=== PATIENT | female | born 1955 | race Caucasian/White ===

== ENCOUNTER 2017-04-12 15:29 | Inpatient (IN) | payer BC ==
[2017-04-12] MEDS ORDERED: Iopamidol 612 MG/ML 75 ML Bottle IV PRN (15:48)
[2017-04-12] MEDS ORDERED: Sodium Chloride 0.9% 50 ML SDV FLUSH ONE (16:00)
[2017-04-12] MEDS ORDERED: Ondansetron 4 MG/2 ML SDV IVPUSH ONE (16:51)
[2017-04-12] MEDS ORDERED: Sodium Chloride 0.9% 1,000 ML IV SCH (17:00)
[2017-04-12] MEDS ORDERED: Sodium Chloride 0.9% 5 ML Syringe FLUSH PRN (18:47)
[2017-04-12] MEDS ORDERED: Morphine 2 MG/ML Syringe IVPUSH PRN (18:51)
[2017-04-12] MEDS ORDERED: LORazepam 2 MG/ML SDV IM PRN (18:55)
[2017-04-12] MEDS: Sodium Chloride 0.9% 1,000 ML IV SCH (19:53)
[2017-04-12] MEDS: Ondansetron 4 MG/2 ML SDV IV PRN (21:52)
[2017-04-12] MEDS: LORazepam 2 MG/ML SDV IVPUSH PRN (21:58)
[2017-04-13] MEDS: Sodium Chloride 0.9% 1,000 ML IV SCH ×2 (02:16→20:36)
[2017-04-13] MEDS: Ondansetron 4 MG/2 ML SDV IV PRN ×3 (02:20→23:17)
[2017-04-13 07:46] LABS: CHLORIDE,CL 104 mmol/L (98-115); SODIUM,NA 141 mmol/L (136-145)
--- NOTE | 2017-04-13 11:28 | PN ---
04/13/2017 PATIENT NAME: LIS MG HISTORY: A 62-year-old very pleasant female. I had seen at [facility] yesterday on 04/12/2017. She came in with her spouse, complaining of abdominal distention, severe nausea and abdominal pain along with low-grade fever 99.7. The patient does have a history of small bowel obstruction, all have been nonoperable. Her clinical picture did indicate likely recurrent of a bowel obstruction. She had stated that her last bowel movement was the morning of admission, however, it was scant. A few days prior to that, she had some diarrhea which she took some Pepto-Bismol. On exam, prior to admission, she did have some mild abdominal distention, somewhat taut. She initially stated her pain was more epigastric. However, when she would avoid, her pain was shifted to more of lower abdominal, more transverse. Surgical history includes appendectomy. She does have a history of small bowel obstructions in the past, last was approximately two years ago. She also had an upper GI endoscopy in September 2014 due to dysphagia. Her diagnosis was GERD, otherwise, normal GI endoscopy. LABORATORY DATA: Labs at [facility], white count was 8.9, hemoglobin 16.1, corresponding hematocrit 47.4, likely hemoconcentrated. No neutrophilia. No electrolyte abnormalities. BUN and creatinine ratio slightly elevated at 28.3. ALT, AST, total bilirubin, alkaline phosphatase normal. Amylase low 39. Temperature at the clinic was 99.7. Blood pressure was 120/72. The patient was sent over for CT scan and subsequently admitted for small bowel obstruction. DIAGNOSTICS: Abdominal CT with IV contrast demonstrated small bowel obstruction with significant proximal and mid small bowel dilatation up to 5.5 cm. Small interloop fluid with possibility of developing bowel ischemia secondary to her obstruction or free air identified. HOSPITAL COURSE: To date, overnight, the patient did have a nasogastric tube placed to decompress, 850 mL output so far, nasogastric. Voided three times, however, nurses are not collecting output as directed. Ongoing isotonic saline at 120 mL/h. N.p.o. at this time. Overnight report: The patient did quite well. She has much less abdominal pain, much less nausea. No longer distended. She is passing gas. No bowel movement yet. Vital signs: Blood pressure 119/60, temperature 99.3, heart rate 74, respiratory rate 16, O2 sats 96% on room air. Lungs: Clear to auscultation. No wheezes, rhonchi. CV: Regular rate and rhythm. Mucous membranes slightly dry. GI: Clamped NG tube prior to assessment. Soft, nontender. No distention. Negative psoas. Bowel tones are present throughout. Lower extremities: No edema. White count 6.6, hemoglobin 13.4, hematocrit 40.9, neutrophils 77%. Sodium, potassium, BUN, and creatinine normal. Calcium slightly low at 7.9, glucose 83. She is n.p.o. Consultations: Did consult with Dr. Huggins last night. He did agree with overall plan on likely treating mechanical obstruction here locally with IV fluids, gastric decompression, and ongoing monitoring for any signs of peritonitis or perforation. The patient did agree with plan of overnight stay with further ongoing close monitoring. Overall plan: Today, strict Is and Os. Discuss with nursing with this. Ongoing gastric decompression. Ambulating on the floor today. Continue n.p.o. status for now. Monitor for signs of sepsis, ischemic bowel, peritonitis. May decide on prokinetic agents later on today if she continues to have improved in bowel tones. Strict intake and output on nasogastric especially. Consult with Dr. Huggins's office regarding ongoing assessment likely she can continue here at [facility]. We discussed possible GI surgical referral post hospitalization. Hopefully, we can begin clear liquids. We will see this afternoon with ongoing monitoring. /[id number]/MODL
[2017-04-13] MEDS: Pantoprazole 40 MG Vial IVPUSH SCH (13:45)
[2017-04-13] MEDS ORDERED: Metoclopramide 10 MG/2 ML SDV IVPUSH ONE (18:24)
--- NOTE | 2017-04-13 18:24 | PCM.SN ---
- Free Text/Narrative Note: Update today, patient has improved. Ambulating. No abdominal distention and no longer abdominal pain. No nausea. Continues with nasogastric decompression. Had 850 mL out brown liquid from admission to rounds this morning and then 400 thereafter. Still no appreciable passing gas. Afebrile. Blood pressure slightly low however asymptomatic. T-max 99.7 today. Continues with bowel rest and nothing by mouth status. Consulted with medicine for one call today, they agree with plan. Recommend Reglan 5 mg 1 and changed to low continuous wall suction tonight and then back to intermittent tomorrow. A repeat CT in a couple days to evaluate resolution of her small bowel dilatation. If she starts passing gas may advance diet to clear liquids to full diet. Discussed case with patient. She prefers to stay here at [facility] to be medically management. Continue with assessments of vital signs CBC and electrolytes in the morning. Continue with IV fluids at this time. Hysell tonic may switch to maintenance in the next 24 hours if she starts advancing diet and passing gas.
[2017-04-13] MEDS: LORazepam 2 MG/ML SDV IVPUSH PRN (23:22)
[2017-04-14] MEDS: Sodium Chloride 0.9% 1,000 ML IV SCH (04:34)
[2017-04-14 08:01] LABS: CHLORIDE,CL 110 mmol/L (98-115); SODIUM,NA 143 mmol/L (136-145)
[2017-04-14] MEDS: Pantoprazole 40 MG Vial IVPUSH SCH (08:49)
[2017-04-14] MEDS: Lactated Ringers 1,000 ML IV SCH ×2 (13:04→21:21)
--- NOTE | 2017-04-14 13:10 | PCM.PN ---
- General Info Date of Service: 04/14/17 Admission Dx/Problem (Free Text): Ms. Armstrong reports ongoing improvement in the last 24 hours. Last evening after receiving a dose of metoclopramide, she had passage of loose stool and has continued to have flatus. This morning, she denies any pain or nausea and hasn' t received any analagesics or antiemetics since last night. Ambulating well without difficulty. She denies any fever, chills, or new symptoms. No nursing concerns. - Patient Data Vitals - Most Recent: Last Vital Signs Temp 36.6 C 04/14/17 10:46 Pulse 71 04/14/17 10:46 Resp 18 04/14/17 10:46 BP 105/52 L 04/14/17 10:46 Pulse Ox 98 04/14/17 10:46 Weight - Most Recent: 52.798 kg I&O - Last 24 Hours: Intake & Output 04/13/17 04/14/17 04/14/17 22:59 06:59 14:59 Intake Total 922 944 Output Total 550 675 Balance 372 269 Lab Results Last 24 Hours: Laboratory Results - last 24 hr 04/14/17 04/14/17 Range/Units 07:32 07:32 WBC 6.2 (5.0-10.0) 10^3/uL RBC 4.20 (3.80-5.50) 10^6/uL Hgb 12.2 (12.0-16.0) g/dL Hct 37.8 (37.0-47.0) % MCV 90.1 (82.0-92.0) fL MCH 29.0 (27.0-31.0) pg MCHC 32.2 (32.0-36.0) g/dL RDW 11.6 (11.5-14.5) % Plt Count 185 (150-300) 10^3/uL MPV 7.2 L (7.4-10.4) fL Neut % (Auto) 74.0 H (50.0-70.0) % Lymph % (Auto) 18.8 L (20.0-40.0) % Ellis % (Auto) 5.3 (2.0-8.0) % Eos % (Auto) 0.6 L (1.0-3.0) % Baso % (Auto) 1.3 H (0.0-1.0) % Neut # (Auto) 4.6 (2.5-7.0) 10^3/uL Lymph # (Auto) 1.2 (1.0-4.0) 10^3/uL Ellis # (Auto) 0.3 (0.1-0.8) 10^3/uL Eos # (Auto) 0.0 L (0.1-0.3) 10^3/uL Baso # (Auto) 0.1 (0.0-0.1) 10^3/uL Sodium 143 (136-145) mmol/L Potassium 3.9 (3.3-5.3) mmol/L Chloride 110 (98-115) mmol/L Carbon Dioxide 18.9 L (21.0-32.0) mmol/L BUN 15 (6-25) mg/dL Creatinine 0.50 L (0.51-1.17) mg/dL Est Cr Clr Drug Dosing 98.48 mL/min Estimated GFR (MDRD) > 60 mL/min Glucose 68 L (70-110) mg/dL Calcium 7.2 L (8.7-10.3) mg/dL Med Orders - Current: Current Medications Lactated Ringer's (Ringers, Lactated) 1,000 mls @ 120 mls/hr IV ASDIRECTED [facility] Last Admin: 04/14/17 13:04 Dose: 120 mls/hr Lorazepam (Ativan) 0.5 mg IVPUSH BEDTIME PRN PRN Reason: Anxiety Last Admin: 04/13/17 23:22 Dose: 0.5 mg Morphine Sulfate (Morphine) 2 - 4 mg IVPUSH Q4H PRN PRN Reason: Pain Last Admin: 04/13/17 09:29 Dose: 2 mg Ondansetron HCl (Zofran) 4 mg IV Q4H PRN PRN Reason: Nausea/Vomiting Last Admin: 04/13/17 23:17 Dose: 4 mg Pantoprazole Sodium (Protonix Iv) 40 mg IVPUSH DAILY [facility] Last Admin: 04/14/17 08:49 Dose: 40 mg Sodium Chloride (Syrex Flush) 5 ml FLUSH Q8HR PRN PRN Reason: Keep Vein Open Discontinued Medications Sodium Chloride (Normal Saline) 1,000 mls @ 120 mls/hr IV ASDIRECTED [facility] Last Admin: 04/12/17 17:07 Dose: 90 mls/hr Sodium Chloride (Normal Saline) 1,000 mls @ 120 mls/hr IV ASDIRECTED [facility] Last Admin: 04/14/17 04:34 Dose: 120 mls/hr Iopamidol (Isovue-300 (61%)) 75 ml IV . DIRECTED PRN PRN Reason: FOR RADIOLOGY EXAM Last Admin: 04/12/17 17:09 Dose: 75 ml Lorazepam (Ativan) 0.5 mg IM BEDTIME PRN PRN Reason: Anxiety Metoclopramide HCl (Reglan) 5 mg IVPUSH ONETIME ONE Stop: 04/13/17 18:25 Last Admin: 04/13/17 19:49 Dose: 5 mg Ondansetron HCl (Zofran) 4 mg IVPUSH ONETIME ONE Stop: 04/12/17 16:52 Last Admin: 04/12/17 17:07 Dose: 4 mg Sodium Chloride (Normal Saline) 50 ml FLUSH ONETIME ONE Stop: 04/12/17 16:01 Last Admin: 04/12/17 17:10 Dose: 50 ml - Exam Physical Findings Comments:: GENERAL: Well-appearing adult white female lying in hospital bed in no acute distress. HEENT: Normocephalic, atraumatic. Conjunctiva clear. Mucous membranes slightly dry. NECK: Supple, no masses. CV: Regular rate and rhythm, no murmurs, rubs, or gallops. 2+ radial pulses. PULMONARY: Normal effort, clear to auscultation bilaterally, no wheezes, rales, or rhonchi. ABDOMEN: Positive bowel sounds in all 4 quadrants, soft, nontender, nondistended. EXTREMITIES: No edema, cyanosis, or clubbing. NEUROLOGICAL: No obvious deficits. DERMATOLOGIC: No rashes or suspicious lesions in exposed areas. PSYCHIATRIC: Alert, interactive, appropriate affect. LINES/TUBES: Nasogastric tube in place with 150cc output in the last 4 hours. - Problem List Review Problem List Initiated/Reviewed/Updated: Yes - My Orders Last 24 Hours: My Active Orders 04/14/17 13:00 Lactated Ringers [Ringers, Lactated] 1,000 ml IV ASDIRECTED 04/15/17 05:11 BASIC METABOLIC PANEL,BMP [CHEM] AM CBC WITH AUTO DIFF [HEME] AM - Assessment Assessment:: Ms. Armstrong is a 62yoF with history of recurrent SBO who was evaluated in clinic on 04/12/17 for symptoms of abdominal pain, distension, and nausea. CT abdomen/ pelvis revealed a high grade SBO and she was admitted for management. # SBO: 04/12 CT abdomen/pelvis with dilated loops of small bowel, including a loop in the pelvis measuring 5.6cm in diameter. Surgery was consulted and recommended trial of nonoperative management with gastric decompression, bowel rest, and IVF, with close monitoring for signs of peritonitis or perforation. Follow-up consultation yesterday recommended ongoing medical management and trial of metoclopramide was given with subsequent stool passage and ongoing passage of flatus. Since she is having much decreased NGT output (1L in the last 24hrs) and no nausea or pain, will clamp NGT and allow for ice chips. If continuing to tolerate well, will plan to advance diet to clear liquids later in the day and possibly remove NGT as early as tomorrow morning. Continue close monitoring for any signs of peritonitis or perforation, including repeat CBC and BMP tomorrow. Continue monitoring of I/O, ambulation, and IVF. Chronic medical conditions: # GERD: Pantoprazole; will change back to po when tolerating diet. # Osteoporosis: Prolia and Ca/D as outpatient; holding here while NPO. # Anxiety/Insomnia: Lorazepam; will change back to po when tolerating diet. Hospitalization details: # FEN: Change NS to LR at 120cc/hr. Electrolytes normal. Diet as above with increase to ice chips and possibly to clear liquids later today. # PPX: Low risk for DVT=ambulation. # Code status: FULL. # Emergency contact: , Reji ([phone]). # Disposition: Continue on inpatient unit. Anticipate eventual discharge to home when SBO resolved.
[2017-04-14] MEDS: Benzocaine 20% Oral Spray 59.2 ML Canister MUCMEM PRN ×2 (15:07→19:12)
[2017-04-14] MEDS: LORazepam 2 MG/ML SDV IVPUSH PRN (22:18)
[2017-04-15] MEDS: Benzocaine 20% Oral Spray 59.2 ML Canister MUCMEM PRN (05:08)
[2017-04-15] MEDS: Lactated Ringers 1,000 ML IV SCH (05:11)
[2017-04-15 07:53] LABS: CHLORIDE,CL 109 mmol/L (98-115); SODIUM,NA 143 mmol/L (136-145)
[2017-04-15] MEDS: Pantoprazole 40 MG Vial IVPUSH SCH (08:14)
[2017-04-15 14:45] VITALS: BP 112/62
--- NOTE | 2017-04-15 15:00 | PCM.DCSUM1 ---
Discharge Summary - Hospital Course Free Text/Narrative:: Date of admission: 04/12/17 Date of discharge: 04/15/17 Admission diagnoses: 1. Small bowel obstruction 2. Hx of small bowel obstruction Discharge diagnoses: 1. Small bowel obstruction 2. Hx of small bowel obstruction Consultations: 04/12/17 General surgery, via [facility] 04/13/17 Medicine, via [facility] Procedures: None Hospital course: Ms. Armstrong is a 62yoF with history of recurrent SBO who was evaluated in clinic on 04/12/17 for symptoms of abdominal pain, distension, and nausea. CT abdomen/ pelvis revealed dilated loops of small bowel, including a loop in the pelvis measuring 5.6cm in diameter. General surgery was consulted and recommended trial of nonoperative management with gastric decompression, bowel rest, and IVF , with close monitoring for signs of peritonitis or perforation for which she was admitted for management. Follow-up consultation with medicine on the second day of admission recommended ongoing medical management and trial of metoclopramide was given with subsequent stool passage and ongoing passage of flatus. She continued to progress well clinically with decreased NGT output and the tube was clamped on 04/14/17 and diet was advanced without any recurrence of symptoms and she had a small soft bowel movement on the morning of 04/15/17. NGT was removed and she continued to do well and was discharged home in good condition. Home medications were resumed and she was instructed to slowly progress diet over the next week. She will follow-up with PCP DEBRA Sheridan, within 3-5 days. Recommend follow-up CT abdomen/pelvis as was recommended by radiology in 1 month. - Discharge Data Discharge Date: 04/15/17 Discharge Disposition: Home, Self-Care 01 Condition: Good - Patient Instructions Diet: GI Soft/Low Residue/Low Fiber (Advance from clear and full liquids slowly as discussed.) Activity: As Tolerated Notify Provider of: Fever, Increased Pain, Nausea and/or Vomiting - Discharge Plan Home Medications: Home Meds Calcium Carbonate/Vitamin D3 [Calcium 1,000 + D3 Caplet] 1 tab PO 0800,1800 11/20 [History] LORazepam 0.5 mg PO BEDTIME 04/12/17 [History] Patient Handouts: Small Bowel Obstruction Referrals: Jerry Guthrie [employer] [Nurse Practitioner] - (this week; call Sunday for appointment) - Discharge Summary/Plan Comment DC Time >30 min.: Yes - General Info Date of Service: 04/15/17 Admission Dx/Problem (Free Text: Small bowel obstruction Subjective Update: Ms. Armstrong reports feeling very well this morning. Since NG tube being clamped yesterday around 1400 and diet advanced from ice chips to clear liquids yesterday afternoon, she has had no recurrent nausea or abdominal pain. After having clear liquids for breakfast this morning, she had a formed soft bowel movement. Ambulating well without difficulty. She denies any fever, chills, or other concerns. No nursing concerns. - Patient Data Vitals - Most Recent: Last Vital Signs Temp 36.4 C 04/15/17 14:45 Pulse 90 04/15/17 14:45 Resp 18 04/15/17 14:45 BP 112/62 04/15/17 14:45 Pulse Ox 97 04/15/17 14:45 Weight - Most Recent: 52.798 kg I&O - Last 24 hours: Intake & Output 04/14/17 04/15/17 04/15/17 22:59 06:59 14:59 Intake Total 8651 108 3348 Output Total 750 1200 750 Balance 325 -203 570 Lab Results - Last 24 hrs: Laboratory Results - last 24 hr 04/15/17 04/15/17 Range/Units 07:23 07:23 WBC 4.9 L (5.0-10.0) 10^3/uL RBC 4.32 (3.80-5.50) 10^6/uL Hgb 12.8 (12.0-16.0) g/dL Hct 38.5 (37.0-47.0) % MCV 89.1 (82.0-92.0) fL MCH 29.7 (27.0-31.0) pg MCHC 33.3 (32.0-36.0) g/dL RDW 11.9 (11.5-14.5) % Plt Count 178 (150-300) 10^3/uL MPV 7.0 L (7.4-10.4) fL Neut % (Auto) 69.2 (50.0-70.0) % Lymph % (Auto) 21.2 (20.0-40.0) % [place] % (Auto) 5.9 (2.0-8.0) % Eos % (Auto) 2.6 (1.0-3.0) % Baso % (Auto) 1.1 H (0.0-1.0) % Neut # (Auto) 3.4 (2.5-7.0) 10^3/uL Lymph # (Auto) 1.0 (1.0-4.0) 10^3/uL [place] # (Auto) 0.3 (0.1-0.8) 10^3/uL Eos # (Auto) 0.1 (0.1-0.3) 10^3/uL Baso # (Auto) 0.1 (0.0-0.1) 10^3/uL Sodium 143 (136-145) mmol/L Potassium 3.9 (3.3-5.3) mmol/L Chloride 109 (98-115) mmol/L Carbon Dioxide 23.4 (21.0-32.0) mmol/L BUN 4 L (6-25) mg/dL Creatinine 0.45 L (0.51-1.17) mg/dL Est Cr Clr Drug Dosing 109.43 mL/min Estimated GFR (MDRD) > 60 mL/min Glucose 83 (70-110) mg/dL Calcium 7.4 L (8.7-10.3) mg/dL Med Orders - Current: Current Medications Benzocaine (Hurricaine 20% [place]) 0 ml MUCMEM Q4HR PRN PRN Reason: Sore Throat Last Admin: 04/15/17 05:08 Dose: 1 applic Ondansetron HCl (Zofran) 4 mg IV Q4H PRN PRN Reason: Nausea/Vomiting Last Admin: 04/13/17 23:17 Dose: 4 mg Sodium Chloride (Syrex Flush) 5 ml FLUSH Q8HR PRN PRN Reason: Keep Vein Open Discontinued Medications Sodium Chloride (Normal Saline) 1,000 mls @ 120 mls/hr IV ASDIRECTED [facility] Last Admin: 04/12/17 17:07 Dose: 90 mls/hr Sodium Chloride (Normal Saline) 1,000 mls @ 120 mls/hr IV ASDIRECTED [facility] Last Admin: 04/14/17 04:34 Dose: 120 mls/hr Lactated Ringer's (Ringers, Lactated) 1,000 mls @ 120 mls/hr IV ASDIRECTED [facility] Last Admin: 04/15/17 05:11 Dose: 120 mls/hr Iopamidol (Isovue-300 (61%)) 75 ml IV . DIRECTED PRN PRN Reason: FOR RADIOLOGY EXAM Last Admin: 04/12/17 17:09 Dose: 75 ml Lorazepam (Ativan) 0.5 mg IM BEDTIME PRN PRN Reason: Anxiety Lorazepam (Ativan) 0.5 mg IVPUSH BEDTIME PRN PRN Reason: Anxiety Last Admin: 04/14/17 22:18 Dose: 0.5 mg Metoclopramide HCl (Reglan) 5 mg IVPUSH ONETIME ONE Stop: 04/13/17 18:25 Last Admin: 04/13/17 19:49 Dose: 5 mg Morphine Sulfate (Morphine) 2 - 4 mg IVPUSH Q4H PRN PRN Reason: Pain Last Admin: 04/13/17 09:29 Dose: 2 mg Ondansetron HCl (Zofran) 4 mg IVPUSH ONETIME ONE Stop: 04/12/17 16:52 Last Admin: 04/12/17 17:07 Dose: 4 mg Pantoprazole Sodium (Protonix Iv) 40 mg IVPUSH DAILY [facility] Last Admin: 04/15/17 08:14 Dose: 40 mg Sodium Chloride (Normal Saline) 50 ml FLUSH ONETIME ONE Stop: 04/12/17 16:01 Last Admin: 04/12/17 17:10 Dose: 50 ml - Exam Physical Findings Comments:: GENERAL: Well-appearing adult white female sitting on edge of hospital bed in no acute distress. HEENT: Normocephalic, atraumatic. Conjunctiva clear. Mucous membranes moist. NECK: Supple, no masses. CV: Regular rate and rhythm, no murmurs, rubs, or gallops. 2+ radial pulses. PULMONARY: Normal effort, clear to auscultation bilaterally, no wheezes, rales, or rhonchi. ABDOMEN: Positive bowel sounds in all 4 quadrants, soft, nontender, nondistended. EXTREMITIES: No edema, cyanosis, or clubbing. NEUROLOGICAL: No obvious deficits. DERMATOLOGIC: No rashes or suspicious lesions in exposed areas. PSYCHIATRIC: Alert, interactive, appropriate affect. LINES/TUBES: Nasogastric tube in place. *Q Meaningful Use (DIS) - VTE *Q VTE Criteria *Q: - Stroke *Q Stroke Criteria *Q: - AMI *Q AMI Criteria *Q:
== END 2017-04-15 15:10 | disposition home or self-care (01) | DRG 247 ==
LOC: KA.CT 15:29 → KA.MS 18:03
PROVIDERS: ADMIT Nurse Practitioner Family; ATTEND Family Medicine
DX: K56.609 Unspecified intestinal obstruction, unspecified as to partial versus complete obstruction (principal); F41.8 Other specified anxiety disorders; K21.9 Gastro-esophageal reflux disease without esophagitis; M81.0 Age-related osteoporosis without current pathological fracture; Z79.899 Other long term (current) drug therapy; Z88.8 Allergy status to other drugs, medicaments and biological substances; Z87.891 Personal history of nicotine dependence
CPT/HCPCS: 36415; 74177; 80048; 85025; C9113; J2060; J2270; J2405; J2765; J7030; J7120; Q9967